=== PATIENT | female | born 1975 | race Caucasian/White ===

== ENCOUNTER 2016-04-05 16:28 | Emergency (ER) | payer MEDICARE, MEDICAID ==
[2016-04-05 16:53] VITALS: TEMP 98.1; BMI 50.3
--- NOTE | 2016-04-05 19:40 | EDPRACDOC ---
- General Information Chief Complaint: Back Pain Stated Complaint: BACK PAIN AND LEG SWELLING Time Seen by Provider: 04/05/16 19:31 Information Source: Patient Home Medications: Home Medications MetFORMIN (Immediate Release) [GLUCOPHAGE Immed Release] 250 mg PO TID 10/13/13 Fluticasone Propionate [Flonase] 2 spray GERA DAILY PRN 08/29/14 Rosuvastatin Calcium [Crestor] 20 mg PO HS 08/29/14 Sertraline HCl [Zoloft] 200 mg PO DAILY #14 tab 01/23/15 Perphenazine 8 mg PO QAM 08/13/15 Perphenazine 16 mg PO HS 08/13/15 Losartan Potassium 50 mg PO DAILY 10/22/15 Omeprazole [Prilosec] 20 mg PO DAILY 12/19/15 Trazodone HCl [Desyrel] 50 mg PO QHS 12/19/15 Zonisamide [Zonegran] 25 mg PO HS 01/27/16 Albuterol Sulfate [Proventil Hfa] 1 - 2 puff INH Q4H PRN #1 each 03/17/16 Famotidine 40 mg PO QHS 03/23/16 Ramelteon [Rozerem] 8 mg PO QHS 03/23/16 Diazepam [Valium] 5 mg PO TID PRN #10 tablet 04/05/16 Allergies/Adverse Reactions: Allergies Allergy/AdvReac Type Severity Reaction Status Date / Time latex [Latex] Allergy Unknown Rash-Locali Verified 04/05/16 16:54 zed Penicillins Allergy Unknown Itching Verified 04/05/16 16:54 codeine Allergy Itching Verified 04/05/16 16:54 divalproex sodium Allergy Hives* Verified 04/05/16 16:54 [From Depakote] - History of Present Illness Onset: 3 WK HPI: UPPER BACK PAIN FOR 3 WEEKS. PAIN 01/12. SENT BY URGENT CARE FOR XRAY. ALSO LEG SWELLING. ED Past Medical History - Patient Medical History Neurological History: Reports: Seizures, Migraine Cardiac History: Reports: Hypertension, Cardiac Catheterization (02/2015 NORMAL 65% MILD MR), Hypercholesterolemia Respiratory History: Reports: Asthma, COPD (HOME O2 3L- prn) GI/ History: Reports: Gastroesophageal Reflux. Denies: Urinary Tract Infection Musculoskeletal History: Reports: Arthritis Psychological History: Reports: Depression, Anxiety, Bipolar Disorder, Substance Use Disorder (THC) Systemic History: Reports: Diabetes. Denies: Cancer, Anemia Surgical History: Reports: Cholecystectomy, Cardiac Catheterization (02/2015 NORMAL 65% MILD MR), Tonsillectomy/Adnoidectomy - Family Medical History Reports: Hypertension (PARENTS), Diabetes, Cancer, Stroke, Cardiac Disorders ( PARENTS) - Social Medical History Smoking Status: Heavy tobacco smoker (5 or more cigarettes/day or daily pipe/ cigar) Social History: Reports: Substance Use Disorder (THC) - Physical Exam Constitutional: Alert (Awake), No apparent distress Oriented to: Time, Person, Place Last recorded Vital Signs: Last Vital Signs Temp 98.1 F 04/05/16 16:50 Pulse 92 04/05/16 16:50 Resp 18 04/05/16 16:50 BP 174/98 04/05/16 16:50 Pulse Ox 97 04/05/16 16:50 Oxygen Pulse Oxygen Saturation 97 O2 Device Room Air Oxygen Flow Rate Fraction of Inspired Oxygen ( FIO2) - HEENT Head: Normal ( normocephalic) Eye Exam: Normal (PERRL, EOMI, Sclera white) Oropharynx: Normal (Pharynx:Moist without exudate,Gums-no swelling) Nose: No Symptoms Reported (septum midline) Neck: Normal (FROM, trachea at midline) - Respiratory/Cardiovascular Respiratory: Normal - CTA (BBS clear to auscultation without adventitious sounds ) Cardiovascular: Normal (RRR without murmur, gallop or rub) - GI Auscultation: Normal (NABS) Palpation: Normal (Soft,No rebound or guarding, non distended) Tenderness: Non tender Hartman's Sign: Negative - Musculoskeletal Back: Normal (Non-Tender) Extremities: Normal (Normal tone, Pulses 2+ No cyanosis or edema, FROM), Other ( NO EDEMA NOTED.) - Integumentary Skin: Normal, Warm, Dry Lymphatics: Normal (no adenopathy) - Neurologic Memory Impaired: Normal Motor Function: Normal (Normal tone, Pulses 2+ No cyanosis or edema, FROM) Cranial Nerve: Normal (CN II-X11 intact sensation, strength 5/5) Cerebellar: Normal Mood Description: Normal Perception: Normal ED Back Exam - Musculoskeletal Thoracic: Tender (LEFT PARASPINAL APPROX T5, T6) Decision Time to Discharge: 20:35 - Departure Yes I personally saw and evaluated the patient. Disposition: Home Condition: Stable Final Diagnosis: Pain in thoracic spine Instructions: Thoracic (Lumbar) Strain Education/Counseling Given To: Patient Education/Counseling Given Regarding: Diagnosis Referrals: Demi Alfonso PA [Primary Care Provider] - One Week Prescriptions: Diazepam [Valium] 5 mg PO TID PRN #10 tablet PRN Reason: Pain
--- NOTE | 2016-04-05 20:21 | DIRPT ---
CLINICAL DATA: Patient with upper back pain for 1 month. No known injury. EXAM: CHEST 2 VIEW COMPARISON: Chest radiograph 03/17/2016 FINDINGS: Stable enlarged cardiac and mediastinal contours. No consolidative pulmonary opacities. No pleural effusion or pneumothorax. IMPRESSION: No acute cardiopulmonary process. Electronically Signed By: Awais North M.D. On: 04/05/2016 20:18
--- NOTE | 2016-04-05 20:23 | DIRPT ---
CLINICAL DATA: Patient with upper thoracic spine pain. No known injury. Initial encounter. EXAM: THORACIC SPINE 2 VIEWS COMPARISON: Chest radiograph 03/17/2016 FINDINGS: Normal anatomic alignment. Preservation of the vertebral body and intervertebral disc space heights. Mid thoracic spine degenerative changes. No evidence for static listhesis. Visualized lung cazares are unremarkable. IMPRESSION: No acute osseous abnormality. Mid thoracic spine degenerative changes. Electronically Signed By: Awais North M.D. On: 04/05/2016 20:20
[2016-04-05] MEDS ORDERED: DIAZEPAM 5 MG TAB PO ONE (20:35)
[2016-04-05 21:16] VITALS: BP 163/91; PULSE 83
== END 2016-04-05 21:14 | disposition home or self-care (01) ==
LOC: ED 16:28
DX: M54.6 Pain in thoracic spine (principal); I10 Essential (primary) hypertension; E11.9 Type 2 diabetes mellitus without complications; E78.00 Pure hypercholesterolemia, unspecified; J45.909 Unspecified asthma, uncomplicated; J44.9 Chronic obstructive pulmonary disease, unspecified; G43.909 Migraine, unspecified, not intractable, without status migrainosus; K21.9 Gastro-esophageal reflux disease without esophagitis; M19.90 Unspecified osteoarthritis, unspecified site; F41.9 Anxiety disorder, unspecified; F31.9 Bipolar disorder, unspecified; F17.210 Nicotine dependence, cigarettes, uncomplicated; Z79.84 Long term (current) use of oral hypoglycemic drugs; Z79.899 Other long term (current) drug therapy; Z99.81 Dependence on supplemental oxygen
CPT/HCPCS: 71020; 72070; 99283; A9270; J3490

== ENCOUNTER 2016-04-19 20:58 | Emergency (ER) | payer MEDICARE, MEDICAID ==
[2016-04-19 21:20] VITALS: TEMP 97.8; BMI 51.2
[2016-04-19] MEDS ORDERED: KETOROLAC TROMETHAMINE 10 MG TAB PO ONE (21:45)
--- NOTE | 2016-04-19 21:51 | EDPRACDOC ---
- General Information Chief Complaint: Chest Pain Stated Complaint: LT SIDED CP & INTO BACK NO INJURY Mode of Arrival: Car Home Medications: Home Medications MetFORMIN (Immediate Release) [GLUCOPHAGE Immed Release] 250 mg PO TID 10/13/13 Fluticasone Propionate [Flonase] 2 spray GERA DAILY PRN 08/29/14 Rosuvastatin Calcium [Crestor] 20 mg PO HS 08/29/14 Sertraline HCl [Zoloft] 200 mg PO DAILY #14 tab 01/23/15 Perphenazine 8 mg PO QAM 08/13/15 Perphenazine 16 mg PO HS 08/13/15 Losartan Potassium 50 mg PO DAILY 10/22/15 Omeprazole [Prilosec] 20 mg PO DAILY 12/19/15 Trazodone HCl [Desyrel] 50 mg PO QHS 12/19/15 Zonisamide [Zonegran] 25 mg PO HS 01/27/16 Albuterol Sulfate [Proventil Hfa] 1 - 2 puff INH Q4H PRN #1 each 03/17/16 Famotidine 40 mg PO QHS 03/23/16 Ramelteon [Rozerem] 8 mg PO QHS 03/23/16 Diazepam [Valium] 5 mg PO TID PRN #10 tablet 04/05/16 Ketoprofen 50 mg PO BID PRN #20 capsule 04/19/16 Allergies/Adverse Reactions: Allergies Allergy/AdvReac Type Severity Reaction Status Date / Time latex [Latex] Allergy Unknown Rash-Locali Verified 04/19/16 21:20 zed Penicillins Allergy Unknown Itching Verified 04/19/16 21:20 codeine Allergy Itching Verified 04/19/16 21:20 divalproex sodium Allergy Hives* Verified 04/19/16 21:20 [From Depakote] - History of Present Illness Onset: 2 weeks HPI: C/o left side lateral rib pain, left side chest pain that radiates into left shoulder and arm x 2 weeks. Pain is worse with movement of left arm, is tender to palpation. Denies trauma event. Denies sob, fever, cough, sore throat, change in urine or BM. Also c/o chronic N/V since Thanksgiving. Med hx = DM, ashtam, HTN, HDL. Surgical hx = miguel. Chest Pain Location: Reports: Left Chest Pain Radiation: Reports: Shoulder (L), Arm (L) Symptoms Occur: Reports: Other (movement) Cardiac Risk Factors: Reports: Hyperlipidemia, Hypertension, Diabetes Cardiac History of: Reports: None PE Risk Factors: Denies: Recent Trauma/Surgery, Estrogen Use, Control Pills Medications within 24 Hours: Reports: None Prehospital Care: Reports: None Pain Came On: Reports: Suddenly Pain Status: Present Now Pain Description: Reports: Sharp Pain Severity: Moderate Pain Worsens With: Reports: Movement Pain Improves With: Reports: Rest ED Past Medical History - History Reviewed Yes Nurses notes reviewed and agree except as marked - Patient Medical History Neurological History: Reports: Seizures, Migraine Cardiac History: Reports: Hypertension, Cardiac Catheterization (02/2015 NORMAL 65% MILD MR), Hypercholesterolemia Respiratory History: Reports: Asthma, COPD (HOME O2 3L- prn) GI/ History: Reports: Gastroesophageal Reflux. Denies: Urinary Tract Infection Musculoskeletal History: Reports: Arthritis Psychological History: Reports: Depression, Anxiety, Bipolar Disorder, Substance Use Disorder (THC) Systemic History: Reports: Diabetes. Denies: Cancer, Anemia Surgical History: Reports: Cholecystectomy, Cardiac Catheterization (02/2015 NORMAL 65% MILD MR), Tonsillectomy/Adnoidectomy. Denies: Hysterectomy - Family Medical History Reports: Hypertension (PARENTS), Diabetes, Cancer, Stroke, Cardiac Disorders ( PARENTS) - Social Medical History Smoking Status: Heavy tobacco smoker (5 or more cigarettes/day or daily pipe/ cigar) Social History: Reports: Substance Use Disorder (THC) EDM Review of Systems - Review of Systems ROS Negative Except as Marked: Yes All systems reviewed and were negative except as marked Cardiovascular: Chest Pain Musculoskeletal: Arm (left), Ribs (left rib pain), Shoulder (left) Endocrine: Diabetes - Physical Exam Constitutional: Alert Oriented to: Time, Place Last recorded Vital Signs: Last Vital Signs Temp 97.8 F 04/19/16 21: Pulse 101 04/19/16 21:17 Resp 20 04/19/16 21:17 BP 135/103 H 04/19/16 21:17 Pulse Ox 97 04/19/16 21:17 Oxygen Pulse Oxygen Saturation 97 O2 Device Room Air Oxygen Flow Rate Fraction of Inspired Oxygen ( FIO2) - HEENT Head: Normal Eye Exam: negative: Conjunctival Injection, Scleral Icterus Oropharynx: negative: Drooling TMJ: Normal Nose: No Symptoms Reported Neck: Normal - Respiratory/Cardiovascular Respiratory: Normal - CTA Cardiovascular: Normal - GI Auscultation: Normal Palpation: Normal Tenderness: Non tender - Musculoskeletal Back: Normal Extremities: Normal - Integumentary Skin: Normal - Neurologic Mood Description: Normal Thought: Coherent Perception: Normal ED Chest Pain Exam - Respiratory/Cardiovascular Respiratory: Normal - CTA Cardiovascular/Chest: Normal Radial Pulse: Normal Pedal Pulse: Normal Edema: negative: 1+, 2+, 3+, 4+, 5, 6 Chest Palpation: Reproduces Pain (on left lateral ribs, left chest. Left arm movement reproduces pain.) - Other Exam Other Exam Findings: no sign of trauma. - Action ASA given in the ED: No - Results 04/19/16 22:03 04/19/16 22:03 - EKG EKG #1 EKG Time: 21:12 -: Yes EKG interpreted by me Rate: bpm: 101 Rhythm: ST ST: Normal - Diagnostic Imaging Other Image interpreted by: Radiologist EXAM: LEFT RIBS AND CHEST - 3+ VIEW COMPARISON: Caps chest radiograph dated 04/05/2016 FINDINGS: No fracture or other bone lesions are seen involving the ribs. There is no evidence of pneumothorax or pleural effusion. Both lungs are clear. Heart size and mediastinal contours are within normal limits. IMPRESSION: No rib fractures or pneumothorax. Electronically Signed By: Darin Nelson M.D. On: 04/19/2016 23:24 Decision Time to Discharge: 23:29 - Departure Disposition: Home Condition: Stable Final Diagnosis: Rib pain on left side Instructions: Chest Wall Pain Education/Counseling Given To: Patient Education/Counseling Given Regarding: Diagnosis, Treatment, Prognosis, Follow Up Referrals: Demi Alfonso PA [Primary Care Provider] - One Week Prescriptions: Ketoprofen 50 mg PO BID PRN #20 capsule PRN Reason: Pain Additional Instructions: Follow up with primary care for rib pain. Take ketoprofen for pain. Take zofran for nausea. Return to ED for any new or worsening symptoms.
[2016-04-19 22:11] LABS: AUTOMATED BASOPHIL 0.9 % (0-2); AUTOMATED EOSINOPHIL 2.5 % (0-5); AUTOMATED MONOCYTE 4.7 % (3-10); AUTOMATED NEUTROPHIL 58.9 % (45-76); MPV 7.6 fL (7.4-10.4)
[2016-04-19 22:27] LABS: BLOOD UREA NITROGEN 11 MG/DL (7-17); CALC CORRECTED 9.2 MG/DL (8.4-10.2); CALCULATED OSMOLALITY 274 MOs/Kg (270-290); CHLORIDE 105 mEq/L (98-107); GLUCOSE 104 MG/DL (70-99); SODIUM LEVEL 143 mEq/L (137-146)
[2016-04-19 22:28] LABS: WBC/URINE 0-2 (0-5)
[2016-04-19 22:29] LABS: LEUKOCYTES/URINE NEG (NEGATIVE); NITRITE/URINE NEG (NEGATIVE); URINE OCCULT BLOOD NEG (NEG/TRACE)
--- NOTE | 2016-04-19 23:27 | DIRPT ---
CLINICAL DATA: 40-year-old female with left chest wall pain EXAM: LEFT RIBS AND CHEST - 3+ VIEW COMPARISON: Caps chest radiograph dated 04/05/2016 FINDINGS: No fracture or other bone lesions are seen involving the ribs. There is no evidence of pneumothorax or pleural effusion. Both lungs are clear. Heart size and mediastinal contours are within normal limits. IMPRESSION: No rib fractures or pneumothorax. Electronically Signed By: Darin Nelson M.D. On: 04/19/2016 23:24
[2016-04-19] MEDS ORDERED: ONDANSETRON HCL 4 MG ODT TAB PO ONE (23:36)
[2016-04-19 23:48] VITALS: BP 145/89; PULSE 98
== END 2016-04-19 23:45 | disposition home or self-care (01) ==
LOC: ED 20:58
DX: R07.81 Pleurodynia (principal)
CPT/HCPCS: 36415; 71101; 80053; 81001; 85025; 93005; 99284; A9270; J3490

== ENCOUNTER 2016-04-24 15:04 | Emergency (ER) | payer MEDICARE, MEDICAID ==
[2016-04-24 15:23] VITALS: TEMP 98.3; BMI 50.6
[2016-04-24 15:39] LABS: URINE OCCULT BLOOD NEG (NEG/TRACE)
[2016-04-24 15:40] LABS: LEUKOCYTES/URINE NEG (NEGATIVE); NITRITE/URINE NEG (NEGATIVE)
[2016-04-24 15:43] LABS: RBC/URINE 0-2 (0-5)
--- NOTE | 2016-04-24 15:50 | EDPRACDOC ---
- General Information Chief Complaint: Bleeding (Rectal &/or other) Stated Complaint: BLOOD IN STOOL Time Seen by Provider: 04/24/16 15:33 Mode of Arrival: Car Home Medications: Home Medications MetFORMIN (Immediate Release) [GLUCOPHAGE Immed Release] 250 mg PO TID 10/13/13 Fluticasone Propionate [Flonase] 2 spray GERA DAILY PRN 08/29/14 Rosuvastatin Calcium [Crestor] 20 mg PO HS 08/29/14 Sertraline HCl [Zoloft] 200 mg PO DAILY #14 tab 01/23/15 Perphenazine 8 mg PO QAM 08/13/15 Perphenazine 16 mg PO HS 08/13/15 Losartan Potassium 50 mg PO DAILY 10/22/15 Omeprazole [Prilosec] 20 mg PO DAILY 12/19/15 Trazodone HCl [Desyrel] 50 mg PO QHS 12/19/15 Zonisamide [Zonegran] 25 mg PO HS 01/27/16 Albuterol Sulfate [Proventil Hfa] 1 - 2 puff INH Q4H PRN #1 each 03/17/16 Famotidine 40 mg PO QHS 03/23/16 Ramelteon [Rozerem] 8 mg PO QHS 03/23/16 Diazepam [Valium] 5 mg PO TID PRN #10 tablet 04/05/16 Ketoprofen 50 mg PO BID PRN #20 capsule 04/19/16 Docusate Sodium [Colace] 50 mg PO BID #60 capsule 04/24/16 Allergies/Adverse Reactions: Allergies Allergy/AdvReac Type Severity Reaction Status Date / Time latex [Latex] Allergy Unknown Rash-Locali Verified 04/24/16 15:25 zed Penicillins Allergy Unknown Itching Verified 04/24/16 15:25 codeine Allergy Itching Verified 04/24/16 15:25 divalproex sodium Allergy Hives* Verified 04/24/16 15:25 [From Depakote] - History of Present Illness Onset: [employer] HPI: BRIGHT RED BLOOD COATING OUTSIDE OF FORMED STOOL WITH LAST 2 BOWEL MOVEMENTS. PAINFULL. NO OTHER BLEEDING. H/O HEMORRHOIDS. NO ABD PAIN. ED Past Medical History - History Reviewed Yes Nurses notes reviewed and agree except as marked - Patient Medical History Neurological History: Reports: Seizures, Migraine Cardiac History: Reports: Hypertension, Cardiac Catheterization (02/2015 NORMAL 65% MILD MR), Hypercholesterolemia Respiratory History: Reports: Asthma, COPD (HOME O2 3L- prn) GI/ History: Reports: Gastroesophageal Reflux. Denies: Urinary Tract Infection Musculoskeletal History: Reports: Arthritis Psychological History: Reports: Depression, Anxiety, Bipolar Disorder, Substance Use Disorder (THC) Systemic History: Reports: Diabetes. Denies: Cancer, Anemia Surgical History: Reports: Cholecystectomy, Hysterectomy, Cardiac Catheterization (02/2015 NORMAL 65% MILD MR), Tonsillectomy/Adnoidectomy - Family Medical History Reports: Hypertension (PARENTS), Diabetes, Cancer, Stroke, Cardiac Disorders ( PARENTS) - Social Medical History Smoking Status: Heavy tobacco smoker (5 or more cigarettes/day or daily pipe/ cigar) Social History: Reports: Substance Use Disorder (THC) EDM Review of Systems - Review of Systems ROS Negative Except as Marked: Yes All systems reviewed and were negative except as marked - Physical Exam Constitutional: No apparent distress, Alert Last recorded Vital Signs: Last Vital Signs Temp 98.3 F 04/24/16 15:20 Pulse 97 04/24/16 15:20 Resp 20 04/24/16 15:20 BP 154/85 04/24/16 15:20 Pulse Ox 96 04/24/16 15:20 Oxygen Pulse Oxygen Saturation 96 O2 Device Room Air Oxygen Flow Rate Fraction of Inspired Oxygen ( FIO2) - HEENT Head: Normal Eye Exam: Normal. negative: Edema, Pale Conjunctiva, Scleral Icterus Oropharynx: Normal. negative: Membranes Dry Neck: Normal - GI Tenderness: Non tender, Other (PROFOUND OBESITY) Rectal Exam: Normal, Hemorrhoids, Heme negative stool. negative: Blood Stool: Brown - Results Urine Color Yellow 04/24/16 15:20 Urine Clarity Sl hzy 04/24/16 15:20 Urine pH 7.0 (5.0-8.0) 04/24/16 15:20 Ur Specific [place] 1.010 04/24/16 15:20 Urine Protein Neg (NEG/TRACE) 04/24/16 15:20 Urine Glucose (UA) Neg (NEGATIVE) 04/24/16 15:20 Urine Ketones Neg (NEGATIVE) 04/24/16 15:20 Urine Occult Blood Neg (NEG/TRACE) 04/24/16 15:20 Urine Nitrite Neg (NEGATIVE) 04/24/16 15:20 Urine Bilirubin Neg (NEGATIVE) 04/24/16 15:20 Urine Urobilinogen 0.2 MG/DL (0-1) 04/24/16 15:20 Ur Leukocyte Esterase Neg (NEGATIVE) 04/24/16 15:20 Urine RBC 0-2 (0-5) 04/24/16 15:20 Ur Epithelial Cells 2+ 04/24/16 15:20 Urine Bacteria Few (NEG/FEW) 04/24/16 15:20 Urine Mucus Occ (NEG/OCC) 04/24/16 15:20 Lab Results 04/24/16 15:20 Urine Color Yellow Urine Clarity Sl hzy Urine pH 7.0 Ur Specific [place] 1.010 Urine Protein Neg Urine Glucose (UA) Neg Urine Ketones Neg Urine Occult Blood Neg Urine Nitrite Neg Urine Bilirubin Neg Urine Urobilinogen 0.2 Ur Leukocyte Esterase Neg Urine RBC 0-2 Ur Epithelial Cells 2+ Urine Bacteria Few Urine Mucus Occ - Departure Disposition: Home Condition: Stable Final Diagnosis: Hemorrhoids, Bleeding hemorrhoid Instructions: Hemorrhoids (ED), Rectal Bleeding (ED) Education/Counseling Given To: Patient, Family Member Education/Counseling Given Regarding: Diagnosis, Treatment, Prognosis Referrals: None,No Provider [Primary Care Provider] - One Week Prescriptions: Docusate Sodium [Colace] 50 mg PO BID #60 capsule
[2016-04-24 16:01] VITALS: BP 145/74; PULSE 77
== END 2016-04-24 16:00 | disposition home or self-care (01) ==
LOC: ED 15:04
DX: K64.9 Unspecified hemorrhoids (principal)
CPT/HCPCS: 81001; 82270; 99283